=== PATIENT | male | born 1955 | race Caucasian/White ===

== ENCOUNTER 2017-10-01 05:39 | Outpatient (CLI) | payer BC ==
[~2017-10-01] VITALS: Ht 177.8 cm; Wt 108.9 kg
[~2017-10-01 05:39] MED LIST: ASPI-587 PO; ATR20T PO; DILT180C67 PO; OMG1KC PO; SIMV40TA4 PO
[2017-10-01] MEDS ORDERED: SIMV10TA3 PO (11:12)
[2017-10-01] MEDS ORDERED: LOSA25TA21 PO (11:28)
== END 2017-10-01 11:39 ==
LOC: PREOP 05:39
PROVIDERS: ATTEND Surgery
DX: Z01.818 Encounter for other preprocedural examination (principal); Z12.11 Encounter for screening for malignant neoplasm of colon; D17.39 Benign lipomatous neoplasm of skin and subcutaneous tissue of other sites

== ENCOUNTER → 2017-10-18 | Outpatient (CLI) | payer BC ==
[~2017-10-18] MED LIST changes: +LOSA25TA21 PO; +SIMV10TA3 PO
== END ==
LOC: PREOP 05:53
PROVIDERS: ATTEND Surgery
DX: Z01.818 Encounter for other preprocedural examination (principal); Z12.11 Encounter for screening for malignant neoplasm of colon; D17.1 Benign lipomatous neoplasm of skin and subcutaneous tissue of trunk

== ENCOUNTER 2017-10-21 07:52 | Day surgery (SDC) | payer BC ==
[~2017-10-21] VITALS: Ht 177.8 cm; Wt 108.9 kg
--- NOTE | 2017-10-21 08:13 | Progress Note-Pre Operative ---
Pre-Operative Progress Note H&P Reviewed The H&P was reviewed, patient examined and no changes noted. Date Seen by Provider: Oct 21, 2017 Time Seen by Provider: 08:05 Date H&P Reviewed: Oct 21, 2017 Time H&P Reviewed: 08:10 Pre-Operative Diagnosis: Symptomatic lipoma right upper back, screening colonoscopy NICHOLAS ZIEGLER APRN Oct 21, 2017 8:13 am
[2017-10-21] MEDS ORDERED: ceFAZolin 1 GM/NS 50 ML IVPB IV ONE ×2 (08:30)
[2017-10-21] MEDS ORDERED: ceFAZolin INJECTION 1,000 MG in NS (IVPB) 50 ML IV ONE (08:30)
[2017-10-21] MEDS: LACTATED RINGERS 1,000 ML IV PRN ×2 (08:30→11:20)
[2017-10-21 08:33] VITALS: BP 130/97
[2017-10-21] MEDS ORDERED: BUP/EPI 0.5% 1:200,000 (MARCAINE) 10ML VIAL IJ ONE ×2 (09:49)
[2017-10-21] MEDS ORDERED: DEXAMETHASONE 10 MG/ML (DECADRON) 1 ML VIAL ONE (10:10)
[2017-10-21] MEDS ORDERED: LIDOCAINE PF 2% 5 ML (XYLOCAINE) VIAL ONE (10:10)
[2017-10-21] MEDS ORDERED: SEVOFLURANE (ULTANE) 15 ML INHAL SOLN ONE ×2 (10:10→12:19)
[2017-10-21] MEDS ORDERED: proPOfol 200 MG/20 ML (DIPRIVAN) VIAL IV ONE ×2 (10:10→10:37)
[2017-10-21] MEDS ORDERED: MIDAZOLAM 2 MG/2 ML (VERSED) VIAL ONE (10:10)
[2017-10-21] MEDS ORDERED: ONDANSETRON 4 MG/2 ML (SDV) Z0FRAN ONE (10:10)
[2017-10-21] MEDS ORDERED: fentaNYL INJECTION 100 MCG/2 ML AMP ONE (10:10)
[2017-10-21] MEDS ORDERED: HYDR-3816 PO (11:09)
--- NOTE | 2017-10-21 11:13 | Discharge Inst-Surgical ---
D/C Lap Instructions-CHRIS New, Converted, or Re-Newed RX: RX on Chart Follow Up Appt in 2 weeks Activity as tolerated Regular Diet Symptoms to Report: Fever over 101 degree F, Nausea/Vomiting Infection Signs and Symptoms to report: Increased redness, Foul odor of wound, Increased drainage Bathing instructions: May shower Operative Area Clean/Dry; Keep incision clean/dry If any problems/questions: Contact your physician or go to Emergency Room SABA PEREZ MD Oct 21, 2017 11:13 am
--- NOTE | 2017-10-21 11:21 | Progress Note-Post Operative ---
Post-Operative Progess Note Surgeon (s)/Marine Electrician Apprentice (s) Surgeon SABA PEREZ MD Marine Electrician Apprentice: safia martini APRN Pre-Operative Diagnosis Symptomatic lipoma right upper back, screening colonoscopy Post-Operative Diagnosis lipoma upper back(10x8cm), chronic stage 2 ext and int hemorrhoids Procedure & Operative Findings Date of Procedure 10/21/17 Procedure Performed/Findings Excision upper back lipoma(10x8cm). Colonoscopy. Anesthesia Type general LMA Estimated Blood Loss Estimated blood loss (mL): minimal Specimens/Packing Specimens Removed upper back lipoma. SABA PEREZ MD Oct 21, 2017 11:21 am
[2017-10-21] MEDS ORDERED: ONDANSETRON 4 MG/2 ML (SDV) Z0FRAN IVP PRN (12:00)
[2017-10-21] MEDS ORDERED: MEPERIDINE (DEMEROL) INJ 50 MG/ML IVP PRN (12:00)
[2017-10-21] MEDS ORDERED: morphine INJ 10 MG/ML 1ML (SYR OR VIAL) IVP PRN (12:00)
[2017-10-21 12:25] VITALS: BP 130/89
[2017-10-21 12:55] VITALS: BP 134/92
[2017-10-21 13:10] VITALS: BP 134/92
--- OUTSIDE RECORDS SUMMARY | 2017-10-21 20:10 | XMS REPORT | Clinical Summary ---
Author Author [facility] Organization [facility] Address Unknown Phone Unavailable Care Team Providers Care Yard Conductor Name Role Phone PCP Unavailable Source Comments Some departments are not documenting in the electronic medical record. If you do not see the information that you expected, contact Release of Information in the Health Information Management department at [phone] for further assistance in locating additional records.[facility] Allergies Active Allergy Reactions Severity Noted Date Comments Horse/Equine Containing ANAPHYLAXIS High 12/26/2015 Products Current Medications Prescription Sig. Disp. Refills Start End Date Status Date aspirin EC 81 mg tablet Take 81 mg by mouth Active daily. simvastatin (ZOCOR) 20 mg Take 10 mg by mouth at Active tablet bedtime daily. omeprazole DR(+) Take 40 mg by mouth twice Active (PRILOSEC) 40 mg capsule daily. 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 Normal LV function, EF 55-60%. No stenosis. PA pressure 25mmHg. 11/18/15: Adenosine administration to terminate SVT at [facility] in [place]. 09/17/14: 48HR Holter: NSR with rare PVC/PAC's. Obesity 12/27/2015 GERD (gastroesophageal reflux disease) 12/27/2015 Hyperlipidemia 12/27/2015 Renal insufficiency 12/27/2015 Family History Relation Name Status Comments Father Alive Mother Social History Tobacco Use Types Packs/Day Years Used Date Former Smoker Cigarettes 0.25 17 Quit: 07/08/1994 Smokeless Tobacco: Former Chew Quit: User 12/08/2015 Alcohol Use Drinks/Week oz/Week Comments Yes 7 Cans of 4.2 beer Sex Assigned at Date Recorded Not on file Last Filed Vital Signs Vital Sign Reading Time Taken Blood Pressure 160/80 07/08/2016 11:17 AM CDT Pulse 65 07/08/2016 11:17 AM CDT Temperature 36.7 C (98 F) 01/29/2016 9:00 AM CDT Respiratory Rate - - Oxygen Saturation 95% 01/29/2016 9:00 AM CDT Inhaled Oxygen - - Concentration Weight 115.8 kg (255 lb 4.8 oz) 07/08/2016 11:17 AM CDT Height 180.3 cm (5' 11") 07/08/2016 11:17 AM CDT Body Mass Index 35.61 07/08/2016 11:17 AM CDT Plan of Treatment Health Maintenance Due Date Last Done Comments HEPATITIS C SCREENING 1955 PHYSICAL (COMPREHENSIVE) 12/30/1962 EXAM PERTUSSIS VACCINE 12/30/1966 TETANUS VACCINE 12/30/1972 COLORECTAL CANCER 12/30/2005 SCREENING SHINGLES VACCINE 2015 INFLUENZA VACCINE 05/11/2017 Results Not on filefrom Last 3 Months
--- OUTSIDE RECORDS SUMMARY | 2017-10-21 20:10 | XMS REPORT | Continuity of Care Document ---
Author Author [facility] Organization [facility] Address Unknown Phone Unavailable Allergies Active Description Code Type Severity Reaction Onset Reported/Identified Relationship to Patient Clinical Status Yes HORSE SERUM HORSE SERUM Severe SWELLING OF THR 03/18/2010 Medications There is no data. Problems Date Dx Coded Attending Type Code Diagnosis Diagnosed By 03/20/2010 Ot 550.90 05/16/2014 BECKY LAINEZ, CRISTHIAN Conley Ot 401.9 HYPERTENSION NOS 05/16/2014 CRISTHIAN PENA MD Ot 789.06 ABDOMINAL PAIN, EPIGASTRIC 11/05/2014 KAYLAN ERAZO APRN Ot 785.1 12/16/2014 KAYLAN ERAZO APRN Ot 785.1 PALPITATIONS 09/02/2015 Ot 550.90 09/02/2015 Ot 791.9 09/02/2015 Ot V72.63 09/02/2015 Ot V72.81 09/02/2015 Ot V74.8 09/02/2015 CRISTHIAN PENA MD Ot 575.6 09/02/2015 CRISTHIAN PENA MD Ot 789.01 09/02/2015 CRISTHIAN PENA MD Ot 789.06 09/02/2015 Ot 785.1 09/18/2015 ALLYN CHOU MD Ot S29.9XXA 09/18/2015 ALLYN CHOU MD Ot W19.XXXA 09/18/2015 ALLYN CHOU MD Ot Y99.8 11/19/2015 CRISTHIAN PENA MD Ot I47.1 SUPRAVENTRICULAR TACHYCARDIA 11/19/2015 CRISTHIAN PENA MD Ot I49.3 VENTRICULAR PREMATURE DEPOLARIZATION 11/19/2015 CRISTHIAN PENA MD Ot 575.6 11/19/2015 CRISTHIAN PENA MD Ot 789.01 11/19/2015 CRISTHIAN PENA MD Ot 789.06 11/19/2015 Ot 785.1 11/19/2015 ALLYN CHOU MD Ot S29.9XXA 11/19/2015 ALLYN CHOU MD Ot W19.XXXA 11/19/2015 ALLYN CHOU MD Ot Y99.8 11/24/2015 CRISTHIAN PENA MD Ot I47.1 SUPRAVENTRICULAR TACHYCARDIA 11/24/2015 CRISTHIAN PENA MD Ot Z79.899 OTHER [facility] (CURRENT) DRUG THERAPY 12/02/2015 CRISTHIAN PENA MD Ot 575.6 12/02/2015 CRISTHIAN PENA MD Ot 789.01 12/02/2015 CRISTHIAN PENA MD Ot 789.06 12/02/2015 Ot 785.1 12/02/2015 ALLYN CHOU MD, Ot S29.9XXA 12/02/2015 ALLYN CHOU MD, Ot W19.XXXA 12/02/2015 ALLYN CHOU MD Ot Y99.8 12/24/2015 LA NENA LAINEZ FACC, ALI FACP CCDS Ot E66.09 12/24/2015 LA NENA LAINEZ FACC, ALI FACP CCDS Ot I47.1 12/24/2015 LA NENA LAINEZ FACC, ALI FACP CCDS Ot Z72.0 10/01/2017 SABA PEREZ MD Ot D17.39 BENIGN LIPOMATOUS NEOPLASM OF SKIN, SUBC 10/01/2017 SABA PEREZ MD Ot Z01.818 ENCOUNTER FOR OTHER PREPROCEDURAL EXAMIN 10/01/2017 SABA PEREZ MD Ot Z12.11 ENCOUNTER FOR SCREENING FOR MALIGNANT NE 10/07/2017 CRISTHIAN PENA MD Ot 575.6 GB CHOLESTEROLOSIS 10/07/2017 CRISTHIAN PENA MD Ot 789.01 ABDOMINAL PAIN, RIGHT UPPER QUADRANT 10/07/2017 CRISTHIAN PENA MD Ot 789.06 ABDOMINAL PAIN, EPIGASTRIC 10/07/2017 Ot 785.1 PALPITATIONS 10/07/2017 ALLYN CHOU MD Ot S29.9XXA UNSPECIFIED INJURY OF THORAX, INITIAL EN 10/07/2017 ALLYN CHOU MD Ot W19.XXXA UNSPECIFIED FALL, INITIAL ENCOUNTER 10/07/2017 ALLYN CHOU MD Ot Y99.8 OTHER EXTERNAL CAUSE STATUS 10/07/2017 LA NENA LAINEZ FACC, ALI FACP CCDS Ot E66.09 OTHER OBESITY DUE TO EXCESS CALORIES 10/07/2017 [facility] MEL[facility]NDE[facility] CCDS Ot I47.1 SUPRAVENTRICULAR TACHYCARDIA 10/07/2017 LA NENA LAINEZ FACC, MADISON MELÉNDEZ CCDS Ot Z72.0 TOBACCO USE 10/19/2017 SABA PEREZ MD Ot D17.1 BENIGN LIPOMATOUS NEOPLASM OF SKIN, SUBC 10/19/2017 SABA PEREZ MD Ot Z01.818 ENCOUNTER FOR OTHER PREPROCEDURAL EXAMIN 10/19/2017 SABA PEREZ MD, Ot Z12.11 ENCOUNTER FOR SCREENING FOR MALIGNANT NE Procedures There is no data. Results There is no data. Encounters ACCT No. Visit Date/Time Discharge Status Pt. Type Provider Facility Loc./Unit Complaint [id number] 10/18/2017 05:53:00 10/18/2017 23:59:59 CLS Outpatient SABA PEREZ MD [facility] PREOP SCREENING COLONOSCOPY, LIPOMA TO RT UPPER BACK [id number] 10/07/2017 13:15:00 10/07/2017 23:59:59 [facility], SCREEN[facility] COLON [id number] 10/01/2017 05:39:00 10/01/2017 11:39:00 DIS Outpatient SABA PEREZ MD [facility] PREOP LIPOMA OF RIGHT UPPER BACK, SCREENING COLON [id number] 12/02/2015 11:32:00 12/02/2015 23:59:59 CLS Outpatient MADISON DEUTSCH MD, FACC, FACP CCDS [facility] CARD PSVT,TOBACCO USER, OBESITY [id number] 11/24/2015 17:59:00 11/24/2015 19:35:00 DIS Emergency CRISTHIAN PENA MD [facility] ER SVT [id number] 11/18/2015 22:56:00 11/19/2015 00:30:00 DIS Emergency CRISTHIAN PENA MD [facility] ER DIZZINESS [id number] 09/02/2015 10:03:00 09/02/2015 23:59:59 CLS Outpatient ALLYN CHOU MD [facility] RAD PAIN POST FALL [id number] 09/17/2014 08:03:00 09/17/2014 23:59:59 CLS Outpatient KAYLAN ERAZO APRN [facility] CARD PALP [id number] 05/17/2014 09:21:00 05/17/2014 23:59:59 CLS Outpatient CRISTHIAN PENA MD [facility] RAD EPIGASTRIC PAIN,RUQ PAIN [id number] 05/16/2014 20:02:00 05/16/2014 22:11:00 DIS Emergency CRISTHIAN PENA MD [facility] ER ABD PAIN [id number] 12/17/2014 08:30:00 Document Registration [id number] 03/20/2010 05:39:00 Document Registration [id number] 03/18/2010 14:06:00 Document Registration
--- NOTE | 2017-10-22 05:10 | OPERATIVE REPORT ---
DATE OF SERVICE: 10/21/2017 ATTENDING PRIMARY CARE PHYSICIAN: Dr. Juarez. PREOPERATIVE DIAGNOSES: Symptomatic right posterior back lipoma, 10 x 8 cm in size screening colonoscopy. POSTOPERATIVE DIAGNOSES: Lipoma, upper back subcutaneous 10 x 8 cm in size, chronic stage II external and internal hemorrhoids. The remainder of the colon and rectum were normal. PROCEDURE: Excision upper back lipoma, 10 x 8 cm in size, colonoscopy. SURGEON: Saba Perez MD. ANESTHESIA: General laryngeal mask airway. ESTIMATED BLOOD LOSS: Minimal. FINDINGS: Large lipoma, which was above the fascia approximately 10 x 8 cm in size. Chronic stage II external and internal hemorrhoids, not actively edematous nor inflamed, no bleeding. Prostate gland was palpable and appeared to be normal. The remainder of the colon and rectum were normal. The patient was brought to the operating room, laid supine on the table. After adequate IV pain, sedation, and general laryngeal mask airway intubation, the patient was placed in left lateral decubitus position. The back was then prepped and draped in standard surgical fashion. A 0.5% Marcaine with epinephrine was then used to incise overlying skin to the lesion. A transverse skin incision was then using a 15 blade. The lipoma was identified and dissected using blunt dissection as well as electrocautery. This was beneath the subcutaneous tissue; however, above the fascia. This lesion was of significant size and approximately 10 x 8 cm in size. The adhesive bands were then taken down using electrocautery as well as above the fascia overlying the trapezius muscle. Good hemostasis was observed. The subcutaneous tissue was then reapproximated using 3-0 Vicryl interrupted sutures. Skin was closed using 4-0 Monocryl running subcuticular suture. Wound was then cleaned and covered with Dermabond. Under the same anesthesia, we then proceeded with a colonoscopy portion of the procedure. A digital rectal examination was performed, which revealed chronic stage II external and internal hemorrhoids, not actively edematous nor inflamed and no bleeding. Normal sphincter tone was felt and there were no palpable masses. Prostate gland was palpable and appeared normal. The endoscope was then intubated to the anus and the rectum gently insufflated. The endoscope was then advanced through the valves of Minor of the rectum with no polyps or any neoplasms identified. We then proceeded through the sigmoid colon where no diverticulosis identified. The endoscope was then advanced to the mid of the descending, transverse and ascending colon to cecum. These segments were normal. There were no polyps or any neoplasms identified throughout the colon or rectum. The endoscope was slowly withdrawn while taking a second look and suctioning of residual air. No additional findings. The patient tolerated the procedure well. We will have him follow up in approximately 2 weeks to reevaluate the wound. No significant lesions were identified throughout the colon. We will recommend a high-fiber diet with at least 30 grams of fiber per day as well as at least 64 fluid ounces of water daily to promote soft stools on a daily basis. He does not need another colonoscopy for another 10 years. Job ID: [id number] DocumentID: [id number] Dictated Date: 10/21/2017 11:50:58 Actuarial Associate Date: 10/22/2017 05:09:40 Dictated By: SABA PEREZ MD MTDD
== END 2017-10-21 13:10 | disposition home or self-care (01) ==
LOC: SDC 07:52
PROVIDERS: ATTEND Surgery
DX: Z12.11 Encounter for screening for malignant neoplasm of colon (principal); K64.1 Second degree hemorrhoids; D17.1 Benign lipomatous neoplasm of skin and subcutaneous tissue of trunk; I10 Essential (primary) hypertension; E78.00 Pure hypercholesterolemia, unspecified; Z79.899 Other long term (current) drug therapy; Z87.891 Personal history of nicotine dependence
CPT/HCPCS: 87081

== ENCOUNTER → 2020-08-30 | Outpatient (CLI) | payer BC ==
[~2020-08-30] MED LIST changes: +HYDR-34 PO; -LOSA25TA21 PO; +LOSA25TA41 PO; +SIMV10TA26 PO; -SIMV10TA3 PO; +SIMV40TA25 PO; -SIMV40TA4 PO
--- NOTE | 2020-08-31 14:42 | NUR ---
Notified of positive COVID test.
== END ==
LOC: LAB FS 10:00
PROVIDERS: ATTEND Orthopaedic Surgery
DX: Z01.812 Encounter for preprocedural laboratory examination (principal); U07.1 COVID-19
CPT/HCPCS: 87635

== ENCOUNTER → 2022-03-03 | Outpatient (CLI) | payer MEDICARE, BC ==
--- NOTE | 2022-03-03 14:33 | Diagnostic Imaging Report ---
INDICATION: Back pain. Time of Exam: 10:01 AM Curvature and alignment of the lumbar spine is normal. Vertebral body heights are well-maintained. No acute compression fracture seen. There is generalized lumbar spondylosis with variable disc space narrowing and marginal spurring. Abdominal aorta is heavily calcified. IMPRESSION: Lumbar spondylosis. No acute bony abnormality is detected. Dictated by: Dictated on workstation # [id number]
--- NOTE | 2022-03-03 14:33 | Diagnostic Imaging Report ---
INDICATION: Back pain. Time of Exam: 10:02 AM Multiple views of the sacroiliac joints were obtained. There is no evidence of ankylosis. No sclerosis or osseous erosive changes are seen. IMPRESSION: Unremarkable SI joints. Dictated by: Dictated on workstation # [id number]
== END ==
LOC: RAD 09:31
PROVIDERS: ATTEND Nurse Practitioner Family
DX: M47.816 Spondylosis without myelopathy or radiculopathy, lumbar region (principal)
CPT/HCPCS: 72100; 72202

== ENCOUNTER → 2022-03-12 | Outpatient (CLI) | payer MEDICARE, BC ==
--- NOTE | 2022-03-12 12:32 | Diagnostic Imaging Report ---
PROCEDURE: MRI lumbar spine. TECHNIQUE: Multiplanar, multisequence MRI of the lumbar spine was performed without contrast. INDICATION: Back pain, left leg weakness. CORRELATED with radiographs 03/03/2022. No prior lumbar MR. FINDINGS: Lumbar statures are stable and within normal limits. There is no marrow edema. No acute appearing bony pathology. There is no paravertebral mass, hemorrhage, aneurysm or fluid collection. The conus appeared normal. There is a normal dispersal of the nerves of the cauda equina. The ligamentous structures intact. The alignment is normal. The T12-L1 and the L1-L2 levels and discs were normal, there was no stenosis. L2-L3: There is disc desiccation, stature loss and mild circumferential bulge but no significant resultant canal stenosis or substantial foraminal encroachment. L3-L4: There is disc desiccation, stature loss and some diffuse circumferential annular bulge. There are mild endplate spurs and osteophytes. Osteophyte disc material greater right than left with [id number] right foraminal stenosis. Canal showed no significant narrowing. L4-L5: There is degenerative facet arthrosis with thickening of the ligamenta flava. There is disc desiccation, bulge and endplate osteophytes. The findings result in mild right and very mild left neural foraminal stenosis. There is a mild degree of canal and left lateral recess impingement. Mild degree of canal stenosis and left lateral recess impingement. L5-S1: A small midline focal disc protrusion indents the ventral thecal sac but results in only mild canal stenosis. Osteophyte disc material results in mild right and mild or mild to moderate left foraminal narrowing. No jas compression of the exiting nerves. IMPRESSION: Multilevel mid to lower lumbar degenerative changes to the discs, endplates and facets with predominantly mild degrees of canal, foraminal and recess stenoses detailed level by level above. Normal alignment. No acute bony abnormality. Dictated by: Dictated on workstation # [id number]
== END ==
LOC: RAD 08:45
PROVIDERS: ATTEND Nurse Practitioner Family
DX: M51.27 Other intervertebral disc displacement, lumbosacral region (principal); M48.07 Spinal stenosis, lumbosacral region; M47.816 Spondylosis without myelopathy or radiculopathy, lumbar region
CPT/HCPCS: 72148

== ENCOUNTER 2022-04-07 08:26 | Outpatient (RCR) | payer MEDICARE, BC | END 2022-04-09 | disposition home or self-care (01) | PROVIDERS: ATTEND Nurse Practitioner Family | DX: M54.42 Lumbago with sciatica, left side (principal) ==

== ENCOUNTER 2022-04-21 14:28 | Outpatient (RCR) | payer MEDICARE, BC | END 2022-05-10 | disposition home or self-care (01) | PROVIDERS: ATTEND Nurse Practitioner Family | DX: M54.42 Lumbago with sciatica, left side (principal) ==

== ENCOUNTER 2023-05-07 21:19 | Emergency (ER) | payer MEDICARE, BC ==
[~2023-05-07] VITALS: Ht 177.8 cm; Wt 86.0 kg
[2023-05-07] MEDS ORDERED: ceFAZolin INJECTION 1,000 MG in NS (IVPB) 50 ML 50 ML IV ONE (22:30)
[2023-05-07] MEDS ORDERED: LACTATED RINGERS 1,000 ML IV ONE (22:30)
[2023-05-07] MEDS ORDERED: VANCOMYCIN INJECTION 1,000 MG in NS (IVPB) 250 ML 250 ML IV ONE (22:30)
[2023-05-07] MEDS ORDERED: TETANUS,DIPTH,PERTUSS P/F (BOOSTRIX) 0.5 ML VIAL IM ONE (22:45)
[2023-05-07 22:50] LABS: BASOPHILS # (AUTO) 0.1 10^3/uL (0.0-0.1); BASOPHILS % (AUTO) 0 % (0-10); EOSINOPHILS # (AUTO) 0.1 10^3/uL (0.0-0.3); EOSINOPHILS % (AUTO) 1 % (0-10); HEMATOCRIT 43 % (40-54); HEMOGLOBIN 14.6 g/dL (13.3-17.7); LYMPHOCYTES # (AUTO) 0.9 10^3/uL (1.0-4.0); LYMPHOCYTES % (AUTO) 6 % (12-44); MEAN CORPUSCULAR HEMOGLOBIN 31 pg (25-34); MEAN CORPUSCULAR HGB CONC 34 g/dL (32-36); MEAN CORPUSCULAR VOLUME 91 fL (80-99); MEAN PLATELET VOLUME 9.4 fL (9.0-12.2); MONOCYTES # (AUTO) 0.4 10^3/uL (0.0-1.0); MONOCYTES % (AUTO) 2 % (0-12); NEUTROPHILS # (AUTO) 14.3 10^3/uL (1.8-7.8); NEUTROPHILS % (AUTO) 90 % (42-75); PLATELET COUNT 184 10^3/uL (130-400); WHITE BLOOD COUNT 15.9 10^3/uL (4.3-11.0)
[2023-05-07 23:00] LABS: ALBUMIN 4.4 GM/DL (3.2-4.5); POTASSIUM 4.1 MMOL/L (3.6-5.0)
[2023-05-07] MEDS ORDERED: ceFAZolin INJECTION 0 MG ONE (23:01)
[2023-05-07 23:02] LABS: TOTAL PROTEIN 6.9 GM/DL (6.4-8.2)
[2023-05-07 23:04] LABS: BILIRUBIN,TOTAL 0.4 MG/DL (0.1-1.0)
[2023-05-07 23:06] LABS: CREATININE SERUM 0.86 MG/DL (0.60-1.30)
[2023-05-07 23:10] LABS: MAGNESIUM 2.1 MG/DL (1.6-2.4)
[2023-05-07 23:21] LABS: BAND NEUTROPHILS 4 %; EOSINOPHILS % (MANUAL) 2 %; LYMPHOCYTES % (MANUAL) 7 %; NEUTROPHILS % (MANUAL) 87 %; RBC MORPH NORMAL
[2023-05-07 23:23] LABS: CREATINE KINASE MB 9.4 NG/ML (<6.6)
[2023-05-08] MEDS ORDERED: fentaNYL INJ 100 MCG/2 ML AMP IVP ONE (00:30)
[2023-05-08] MEDS ORDERED: morphine INJ 10 MG/ML 1ML (SYR OR VIAL) IVP STA (02:35)
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
[2023-05-08 03:53] VITALS: BP 123/74
[2023-05-08 03:54] LABS: BILIRUBIN,URINE NEGATIVE (NEGATIVE); CLARITY,URINE CLEAR; COLOR,URINE YELLOW; GLUCOSE, URINE (UA) NEGATIVE (NEGATIVE); KETONES,URINE 1+ (NEGATIVE); LEUKOCYTE ESTERASE ,URINE NEGATIVE (NEGATIVE); NITRITE,URINE NEGATIVE (NEGATIVE); PH,URINE 5.5 (5-9); PROTEIN,URINE NEGATIVE (NEGATIVE)
[2023-05-08 04:06] LABS: AMPHETAMINE SCREEN, URINE NEGATIVE (NEGATIVE); BARBITURATE SCREEN URINE NEGATIVE (NEGATIVE); BENZODIAZEPINES SCREEN URINE NEGATIVE (NEGATIVE); CANNABINOID SCREEN, URINE NEGATIVE (NEGATIVE); COCAINE SCREEN URINE NEGATIVE (NEGATIVE); METHADONE STAT NEGATIVE (NEGATIVE); OPIATE SCREEN URINE NEGATIVE (NEGATIVE); OXYCODONE STAT NEGATIVE (NEGATIVE); PROPOXYPHENE STAT NEGATIVE (NEGATIVE); TRICYCLIC ANTIDEPRESSANTS SCRE NEGATIVE (NEGATIVE)
[2023-05-08 04:22] LABS: BACTERIA,URINE NEGATIVE /HPF; HYALINE CASTS, URINE 0-2 /LPF
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
--- NOTE | 2023-05-08 07:23 | Diagnostic Imaging Report ---
EXAMINATION: Right forearm radiograph EXAM DATE: 05/07/2023 11:27 PM COMPARISON: None available. HISTORY: forearm pain TECHNIQUE: 2 views FINDINGS: There is cortical lucency seen along the distal right radius as well as within the ulnar styloid. No other acute fracture, dislocation, or destructive osseous process. Visualized joint spaces are unremarkable. The soft tissues are normal. IMPRESSION: 1. Likely minimally displaced fractures of the distal right radius and ulnar styloid. No other acute fracture within the forearm. Dictated by: Dictated on workstation # [id number]
--- NOTE | 2023-05-08 07:25 | Diagnostic Imaging Report ---
INDICATION: Right shoulder pain. COMPARISON: None. DISCUSSION: Three views of the right shoulder were obtained. Mild degenerative disease noted. No fracture or dislocation. Alignment is anatomic. Soft tissues are unremarkable. IMPRESSION: 1. Mild right shoulder degenerative disease. No acute osseous abnormality. Dictated by: Dictated on workstation # [id number]
--- NOTE | 2023-05-08 07:25 | Diagnostic Imaging Report ---
EXAMINATION: Right hand radiograph EXAM DATE: 05/07/2023 11:27 PM COMPARISON: None available. HISTORY: Right hand pain. TECHNIQUE: 3 views FINDINGS: Mildly displaced acute fracture of the distal right radius. There is cortical lucency through the distal ulnar styloid suggesting nondisplaced fracture. There is mild radiocarpal joint space narrowing. There is soft tissue swelling about the right wrist with multiple radiopaque foreign bodies seen within the soft tissues overlying the ulnar right hand. IMPRESSION: 1. Mildly displaced acute fractures of the distal right radius and ulnar styloid. 2. Multiple radiopaque foreign bodies overlying the soft tissues of the right hand. Dictated by: Dictated on workstation # [id number]
--- NOTE | 2023-05-08 07:25 | Diagnostic Imaging Report ---
INDICATION: Upper right arm pain. COMPARISON: None. DISCUSSION: Two views of the right humerus were obtained. No acute fracture, dislocation, or other osseous abnormality identified. No significant degenerative disease. Alignment is anatomic. Soft tissues are unremarkable. IMPRESSION: 1. Negative right humerus. Dictated by: Dictated on workstation # [id number]
== END 2023-05-08 03:53 | disposition short-term general hospital (02) ==
LOC: EDUNIT# 21:19 → ER 21:21
DX: S52.501B Unspecified fracture of the lower end of right radius, initial encounter for open fracture type I or II (principal); S52.611B Displaced fracture of right ulna styloid process, initial encounter for open fracture type I or II; F10.129 Alcohol abuse with intoxication, unspecified; M48.32 Traumatic spondylopathy, cervical region; I77.810 Thoracic aortic ectasia; M25.511 Pain in right shoulder; E04.1 Nontoxic single thyroid nodule; F17.210 Nicotine dependence, cigarettes, uncomplicated; Y90.6 Blood alcohol level of 120-199 mg/100 ml; Z23 Encounter for immunization; Z28.311 Partially vaccinated for COVID-19; V86.55XA Driver of 3- or 4- wheeled all-terrain vehicle (ATV) injured in nontraffic accident, initial encounter; Y92.410 Unspecified street and highway as the place of occurrence of the external cause
CPT/HCPCS: 70450; 71045; 72125; 72128; 72131; 73030; 73060; 73090; 73130; 80053; 80306; 81000; 82550; 82553; 83735; 83874; 85007; 85027; 99284; G0480; 36415; 80320; 90715

== ENCOUNTER 2023-05-28 09:54 | Emergency (ER) | payer MEDICARE, BC ==
[~2023-05-28] VITALS: Ht 177.8 cm; Wt 86.2 kg
[2023-05-28] MEDS ORDERED: ORPHENADRINE 60 MG/2 ML (NORFLEX) AMP (ED ONLY) IM STA (11:29)
[2023-05-28] MEDS ORDERED: KETOROLAC INJ 30 MG/ML VIAL IM STA (11:29)
--- NOTE | 2023-05-28 11:33 | Diagnostic Imaging Report ---
CLINICAL HISTORY: Left hip pain. COMPARISON: 03/03/2022. TECHNIQUE: Three views of the pelvis and left hip. FINDINGS: There is no acute fracture or dislocation of the pelvis and left hip. Alignment is anatomic. The imaged joint spaces are preserved. No focal osseous lesions are seen. Scattered phleboliths are present. IMPRESSION: 1. No acute fracture or dislocation in the pelvis and left hip. Dictated by: Dictated on workstation # [id number]
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
[2023-05-28] MEDS ORDERED: CYCL10TA25 PO (11:59)
[2023-05-28] MEDS ORDERED: NAPR-1071 PO (11:59)
[2023-05-28 12:08] VITALS: BP 135/87
== END 2023-05-28 12:07 | disposition home or self-care (01) ==
LOC: EDUNIT# 09:54 → ER 09:56
DX: S70.02XA Contusion of left hip, initial encounter (principal); F17.210 Nicotine dependence, cigarettes, uncomplicated; Z28.311 Partially vaccinated for COVID-19; V86.95XA Unspecified occupant of 3- or 4- wheeled all-terrain vehicle (ATV) injured in nontraffic accident, initial encounter; Y92.410 Unspecified street and highway as the place of occurrence of the external cause

== ENCOUNTER → 2023-06-07 | Outpatient (CLI) | payer MEDICARE, BC ==
[~2023-06-07] MED LIST changes: +CYCL10TA25 PO; +NAPR-1071 PO
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
== END ==
LOC: RAD 07:46
DX: S82.101A Unspecified fracture of upper end of right tibia, initial encounter for closed fracture (principal); S52.501A Unspecified fracture of the lower end of right radius, initial encounter for closed fracture; S62.012A Displaced fracture of distal pole of navicular [scaphoid] bone of left wrist, initial encounter for closed fracture; S52.602A Unspecified fracture of lower end of left ulna, initial encounter for closed fracture; X58.XXXA Exposure to other specified factors, initial encounter
CPT/HCPCS: 73200

== ENCOUNTER → 2023-08-10 | Outpatient (CLI) | payer MEDICARE, BC ==
--- NOTE | 2023-08-10 16:49 | Diagnostic Imaging Report ---
INDICATION: Thyroid nodule. TECHNIQUE: Grayscale sonographic images of the thyroid gland. CORRELATION STUDY: None. FINDINGS: RIGHT LOBE: 4.8 x 2.0 x 2.3 cm. There are two small hypoechoic to isoechoic solid nodules within the right lobe. Largest in the superior pole is 0.9 x 0.8 x 0.5 cm. A very small one at the mid posterior lateral aspect is 0.4 x 0.4 x 0.4 cm. LEFT LOBE: Enlarged 5.7 x 2.9 x 2.6 cm. There is a complex but predominantly solid mass occupying a large portion of the mid inferior portion of the left thyroid lobe. This appears to be taller than wide and measures 3.5 x 2 x 1.9 cm. Rather marked hypervascularity. Microcalcifications do appear to be present. Isthmus appears unremarkable. IMPRESSION: Dominant 3.5 cm complex solid mass in the left thyroid lobe is TR 5, a highly suspicious lesion. Fine-needle aspiration is recommended. TI-RADS 5: Highly Suspicious FNA if ? 1 cm Follow if ? 0.5 cm (Annually for 5 years from initial scan) Dictated by: Dictated on workstation # [id number]
== END ==
LOC: RAD 10:30
PROVIDERS: ATTEND Internal Medicine
DX: E04.1 Nontoxic single thyroid nodule (principal); K76.89 Other specified diseases of liver; I10 Essential (primary) hypertension
CPT/HCPCS: 76536

== ENCOUNTER → 2023-08-18 | Outpatient (CLI) | payer MEDICARE, BC ==
[~2023-08-18] VITALS: Ht 177.8 cm; Wt 86.4 kg
[~2023-08-18] MED LIST changes: +LIDOCAINE 1% INJ 10 ML VIAL INJ ONE; +LIDOCAINE 1% INJ 10 ML VIAL ONE
--- NOTE | 2023-08-18 15:34 | Diagnostic Imaging Report ---
INDICATION: Left thyroid nodule. Patient presents for ultrasound guided fine needle aspiration. Patient brought to the procedure and placed on table in supine position. Ultrasound imaging of the left neck was performed to evaluate appropriate entry site. The neck was then prepped and draped in usual sterile fashion. Small amount of 1% lidocaine was utilized for local anesthesia. A total of 4 passes were made into the dominant mass in the lower pole of the left lobe of thyroid gland utilizing 25 gauge needles and fine-needle aspiration technique. Needle was removed and hemostasis was obtained. Patient tolerated procedure well and left the department in stable condition. IMPRESSION: Successful ultrasound-guided fine-needle aspiration of the dominant mass left lobe of the thyroid. Pathology results are currently pending. Dictated by: Dictated on workstation # [id number]
== END ==
LOC: RAD 13:01
PROVIDERS: ATTEND Internal Medicine
DX: E04.1 Nontoxic single thyroid nodule (principal)
CPT/HCPCS: 10005

== ENCOUNTER → 2023-09-07 | Outpatient (CLI) | payer MEDICARE, BC ==
[~2023-09-07] MED LIST changes: +HOLD METFORMIN - RECEIVED CONTRAST 20 ML VIAL IV SCH; +IOHEXOL 350 MG/ML 100 ML (OMNIPAQUE 350) VIAL IV ONE; -LIDOCAINE 1% INJ 10 ML VIAL INJ ONE; -LIDOCAINE 1% INJ 10 ML VIAL ONE; +NS 100 ML (IVPB) BAG IV ONE
--- NOTE | 2023-09-07 14:42 | Diagnostic Imaging Report ---
PROCEDURE: CT abdomen and pelvis with and without contrast. TECHNIQUE: Precontrast acquisitions were acquired through the abdomen and pelvis. Multiple contiguous axial images were obtained through the abdomen and pelvis after the administration of intravenous contrast. Auto Exposure Controls were utilized during the CT exam to meet ALARA standards for radiation dose reduction. INDICATION: Liver lesion. CORRELATION is made with prior CT from 05/16/2014. The lung bases are clear. No discrete liver mass is identified. The gallbladder is unremarkable. There is no biliary ductal dilatation. The pancreas and spleen are unremarkable. There is no adrenal mass. There is a 5 mm nonobstructing calculus in the lower pole of the left kidney. Both kidneys do contain tiny cortical low-attenuation lesions too small to characterize but likely small cysts. The aorta is nonaneurysmal.The small and large bowel loops are normal caliber. There is no obstruction. There is no ascites. The bladder is unremarkable. Prostate is enlarged. No abdominal or pelvic lymphadenopathy is detected. IMPRESSION: 1. Nonobstructing left-sided nephrolithiasis. 2. No discrete liver mass is identified. 3. Prostatomegaly. Dictated by: Dictated on workstation # [id number]
== END ==
LOC: RAD 10:53
PROVIDERS: ATTEND Internal Medicine
DX: N20.0 Calculus of kidney (principal); N40.0 Benign prostatic hyperplasia without lower urinary tract symptoms; K76.89 Other specified diseases of liver
CPT/HCPCS: 74178

== ENCOUNTER 2023-09-08 16:05 | Outpatient (RCR) | payer MEDICARE, BC ==
[~2023-09-08 16:05] MED LIST changes: -HOLD METFORMIN - RECEIVED CONTRAST 20 ML VIAL IV SCH; -IOHEXOL 350 MG/ML 100 ML (OMNIPAQUE 350) VIAL IV ONE; -NS 100 ML (IVPB) BAG IV ONE
== END 2023-09-09 | disposition home or self-care (01) ==
PROVIDERS: ATTEND Orthopaedic Surgery
DX: S52.51 Fracture of radial styloid process (principal); Z98.890 Other specified postprocedural states